=== PATIENT | female | born 1970 | race Two or more races ===

== ENCOUNTER 2024-08-02 10:21 | Outpatient (AMB) | payer MEDICARE, MEDICAID, SELFPAY ==
--- NOTE | 2024-08-02 10:26 | A.OFFVIS_ITS ---
VS Expanded 08/02/24 10:29 08/02/24 10:38 Height 5 ft 5 in 5 ft 5 in Weight 208 lb 15.971 oz 209 lb BMI 34.8 34.8 Intake Visit Reasons: DM/LVM Nutrition Presentation Details: Pt presents for MNT for Elevated cholesterol and DM. Pt was referred by PCP, Vee Landa from [facility] Food frequency fruits : 0-1/d vegetables: 3x/wk fish 0-1wk dairy: 4+ walking: daily + walking the dog . Pt reports often times skipping meals during the day and then having increased appetite in the evening. Working on cooking with less fat added and choosing baked vs fried foods. BS Monitoring Most Recent Diabetes Results: Cholesterol 207 MG/DL 09/01/18 HDL Cholesterol 27 MG/DL 09/01/18 Triglycerides 119 MG/DL 09/01/18 Creatinine 0.84 MG/DL (0.5-1.4) 09/01/18 Blood Urea Nitrogen 9 MG/DL (9-16) 09/01/18 Sodium 139 MMOL/L (135-145) 09/01/18 Potassium 4.2 MMOL/L (3.3-5.1) 09/01/18 Chloride 102 MMOL/L (96-108) 09/01/18 Calcium 10.0 MG/DL (8.4-10.2) 09/01/18 MKU-Uhyspre-Hs.Jeor Equation Height: 5 ft 5 in Weight: 209 lb Resting Metabolic Rate: 1547.34 Calculated Activity Level: Sedentary Calories Needed to Maintain Weight: 1856.81 Diagnosis Nutrition problem #1: food nutri know defi As related to (etiology) #1: diagnosis (T2DM, Hyperlipidemia ) As evidenced by (sign/symptom) #1: knowledge deficit of diet Assessment & Plan Assessment & Plan (1) T2DM (type 2 diabetes mellitus): Code(s): E11.9 - Type 2 diabetes mellitus without complications Category: Medical Plan: Wt: 94.5 Kg ( 07/2024 ) Est kcal needs as per MSJ: 1800 (40% carb, 30% protein/fat) Est fluid needs as per 25-30 ml/d: 2800 Est prot per day as per 1 g/kg bw: 95g Recommend fiber intake : 8-10 g per day and gradually increase to 25-28 g per day for women and 35-38 g for men or as tolerated Recommend sodium intake per day : less than 2300 mg Educated patient on: ( R = reviewed V = verbalizes understanding N/R = needs review N/A = not applicable * Food sources of carbohydrate, adequate serving sizes and its role in various health conditions: R * Differences between complex carbohydrates a simple carbohydrates, role of fiber in diet: R V N/R * Lean protein sources of foods: R V NR * Differences between types of fats and role in diet (mono on saturated fat fatty acids, saturated fatty acids, trans fats): R V N/R * Food sources of sodium in salt and healthy modifications for heart health in kidney health: R V R/V * Vitamins and minerals: R V N/R * Healthy plate method concept: R V N/R * Physical activity: Benefits a precaution: R V N/R * Hypoglycemia protocol (rule of 15): R V N/R * Dietary prevention of Hyperglycemia: R Patient Instructions: Work on reducing total carbohydrates to 60 g or less per meal following healthy plate method Include omega 3 sources of foods in your diet (fish at least twice a week, choose nuts as snack) See meal plan as reference Coding Level of Care Code Nutr Indiv Intake (74451) Diagnoses T2DM (type 2 diabetes mellitus) E11.9 Time Spent (min) 30
[2024-08-02 10:29] VITALS: BMI 34.8
[2024-08-02 10:38] VITALS: BMI 34.8
== END 2024-08-02 11:19 | disposition home or self-care (01) ==
PROVIDERS: PCP Internal Medicine Endocrinology, Diabetes & Metabolism; Visit Provider Dietitian, Registered
DX: E11.9 Type 2 diabetes mellitus without complications (principal)

== ENCOUNTER → 2024-08-02 10:21 | Outpatient (BNVA) | payer MEDICARE, MEDICAID, SELFPAY | PROVIDERS: PCP Internal Medicine Endocrinology, Diabetes & Metabolism; Visit Provider Dietitian, Registered | DX: E11.9 Type 2 diabetes mellitus without complications (principal); Z71.3 Dietary counseling and surveillance | CPT/HCPCS: 97802 ==

== ENCOUNTER 2024-10-03 10:19 | Outpatient (AMB) | payer MEDICARE, MEDICAID, SELFPAY ==
--- NOTE | 2024-10-03 10:25 | A.OFFVIS_ITS ---
VS Expanded 10/03/24 10:26 Height 5 ft 5 in Weight 208 lb 15.971 oz BMI 34.8 Intake Visit Reasons: T2DM, hyperlipidemia Medication List - Last Reconciled 10/03/[address], LDN cholecalciferol (vitamin D3) 50 mcg PO DAILY Nutrition Presentation Details: Pt presents for MNT f/u for T2DM and cholesterol Pt reports gradually working on diet modifications BS Monitoring Most Recent Diabetes Results: Cholesterol 207 MG/DL 09/01/18 HDL Cholesterol 27 MG/DL 09/01/18 Triglycerides 119 MG/DL 09/01/18 Creatinine 0.84 MG/DL (0.5-1.4) 09/01/18 Blood Urea Nitrogen 9 MG/DL (9-16) 09/01/18 Sodium 139 MMOL/L (135-145) 09/01/18 Potassium 4.2 MMOL/L (3.3-5.1) 09/01/18 Chloride 102 MMOL/L (96-108) 09/01/18 Calcium 10.0 MG/DL (8.4-10.2) 09/01/18 Assessment & Plan Assessment & Plan (1) T2DM (type 2 diabetes mellitus): Code(s): E11.9 - Type 2 diabetes mellitus without complications Category: Medical Plan: Wt: 94.5 Kg ( 07/2024 ), 10/15 Est kcal needs as per MSJ: 1800 (40% carb, 30% protein/fat) Est fluid needs as per 25-30 ml/d: 2800 Est prot per day as per 1 g/kg bw: 95g Recommend fiber intake : 8-10 g per day and gradually increase to 25-28 g per day for women and 35-38 g for men or as tolerated Recommend sodium intake per day : less than 2300 mg Educated patient on: ( R = reviewed V = verbalizes understanding N/R = needs review N/A = not applicable * Food sources of carbohydrate, adequate serving sizes and its role in various health conditions: R * Differences between complex carbohydrates a simple carbohydrates, role of fiber in diet: R * Lean protein sources of foods: R * Differences between types of fats and role in diet (mono on saturated fat fatty acids, saturated fatty acids, trans fats): R V N/R * Food sources of sodium in salt and healthy modifications for heart health in kidney health: R V R/V * Vitamins and minerals: R V N/R * Healthy plate method concept: R * Physical activity: Benefits a precaution: R * Dietary prevention of Hyperglycemia: R Patient Instructions: Increase fluids (water, dilute juices with water, coconut water, low sodium broth), choose vegetables high in fluids/fiber (cucumber, celery, tomatoes) Engage in physical activity 30 minutes 3 times/wk Coding Level of Care Code Nutr Indiv Subseq (23240) Diagnoses T2DM (type 2 diabetes mellitus) E11.9 Time Spent (min) 30
[2024-10-03 10:26] VITALS: BMI 34.8
== END 2024-10-03 11:34 | disposition home or self-care (01) ==
PROVIDERS: PCP Internal Medicine Endocrinology, Diabetes & Metabolism; Visit Provider Dietitian, Registered
DX: E11.9 Type 2 diabetes mellitus without complications (principal)

== ENCOUNTER → 2024-10-03 10:19 | Outpatient (BNVA) | payer MEDICARE, MEDICAID, SELFPAY | PROVIDERS: PCP Internal Medicine Endocrinology, Diabetes & Metabolism; Visit Provider Dietitian, Registered | DX: E11.9 Type 2 diabetes mellitus without complications (principal); E78.5 Hyperlipidemia, unspecified; Z71.3 Dietary counseling and surveillance | CPT/HCPCS: 97803 ==